=== PATIENT | male | born 1970 | race Caucasian/White ===

== ENCOUNTER 2018-09-13 07:34 | Emergency (ER) | payer BC ==
[2018-09-13 08:21] VITALS: BP 144/86
--- NOTE | 2018-09-13 08:28 | UC ---
Throat Pain/Nasal Michael HPI - HPI Summary HPI Summary: 3 days of sore throat and cough. Lost his voice yesterday. Had low-grade temperature 100 at onset but no fever since then. Denies ear pain, nausea/ vomiting. - History of Current Complaint Chief Complaint: UCGeneralIllness Stated Complaint: ST,LOSS OF VOICE Time Seen by Provider: 09/13/18 07:51 Hx Obtained From: Patient Onset/Duration: Gradual Onset, Lasting Days, Still Present Severity: Mild Pain Intensity: 2 Pain Scale Used: 0-10 Numeric Cough: Nonproductive Associated Signs & Symptoms: Positive: Fever - Allergies/Home Medications Allergies/Adverse Reactions: Allergies Allergy/AdvReac Type Severity Reaction Status Date / Time No Known Allergies Allergy Verified 09/13/18 07:53 Home Medications: Home Medications Atorvastatin* [Lipitor 10 MG*] 10 mg PO BEDTIME 09/13/18 [History Confirmed 03/25] PMH/Surg Hx/FS Hx/Imm Hx Endocrine History: Dyslipidemia - Surgical History Surgical History: None - Family History Known Family History: Positive: Non-Contributory - Social History Alcohol Use: None Substance Use Type: None Smoking Status (MU): Never Smoked Tobacco Review of Systems All Other Systems Reviewed And Are Negative: Yes Constitutional: Positive: Fever, Fatigue ENT: Positive: Sore Throat Respiratory: Positive: Cough Cardiovascular: Positive: Negative Gastrointestinal: Positive: Negative Physical Exam Triage Information Reviewed: Yes Appearance: Well-Appearing, No Pain Distress, Well-Nourished Vital Signs: Initial Vital Signs Temp 98.1 F 09/13/18 07:50 Pulse 102 09/13/18 07:50 Resp 16 09/13/18 07:50 BP 165/103 09/13/18 07:50 Pulse Ox 99 09/13/18 07:50 Laboratory Tests 09/13/18 07:58 Group A Strep Rapid Negative Vital Signs Reviewed: Yes Eyes: Positive: Conjunctiva Clear ENT: Positive: Hearing grossly normal, Pharynx normal, TMs normal Neck: Positive: Supple Respiratory Exam: Normal Cardiovascular Exam: Normal Abdomen Description: Positive: Soft Musculoskeletal: Positive: No Edema Neurological: Positive: Alert Psychological: Positive: Age Appropriate Behavior Skin: Negative: Rashes Throat Pain/Nasal Course/Dx - Differential Dx/Diagnosis Provider Diagnosis: Upper respiratory infection Discharge - Sign-Out/Discharge Documenting (check all that apply): Patient Departure All imaging exams completed and their final reports reviewed: No Studies - Discharge Plan Condition: Stable Disposition: HOME Patient Education Materials: Laryngitis (ED), Upper Respiratory Infection (ED) Referrals: Bryan Novak MD [Primary Care Provider] - (KEEP YOUR APPT IN 2 DAYS) Additional Instructions: STREP TEST NEGATIVE. YOUR SYMPTOMS ARE LIKELY VIRALLY MEDIATED AND SHOULD RESOLVE ON THEIR OWN WITH TIME. NO INDICATION FOR ANTIBIOTICS AT PRESENT. REST, HYDRATE, OTC MEDS NEEDED. SEEK FOLLOW-UP IF YOU ARE NOT IMPROVING OVER THE NEXT 1-2 WEEKS. YOUR BLOOD PRESSURE WAS ELEVATED TODAY. THIS MAY BE DUE TO YOUR ACUTE CONDITION. MONITOR AND KEEP YOUR FOLLOW-UP WITH YOUR PCP IN 2 DAYS - Billing Disposition and Condition Condition: STABLE Disposition: Home
== END 2018-09-13 08:31 | disposition home or self-care (01) ==
LOC: UCCORT 07:34
DX: J06.9 Acute upper respiratory infection, unspecified (principal); E78.5 Hyperlipidemia, unspecified
CPT/HCPCS: 87651; 99201; G0463